=== PATIENT | female | born 1945 | race African-American/Black ===

== ENCOUNTER → 2021-04-19 | Outpatient (CLI) | payer MEDICARE, OTHER | LOC: COL.RAD 04-17 11:30 | DX: G40.209 Localization-related (focal) (partial) symptomatic epilepsy and epileptic syndromes with complex partial seizures, not intractable, without status epilepticus (principal); I25.10 Atherosclerotic heart disease of native coronary artery without angina pectoris; R53.83 Other fatigue; G93.2 Benign intracranial hypertension | CPT/HCPCS: Q9967 ==